=== PATIENT | male | born 1975 | race Caucasian/White ===

== ENCOUNTER 2018-09-16 11:53 | Emergency (ER) | payer BC ==
[2018-09-16] MEDS ORDERED: Sodium Chloride 0.9% 10 ML Syringe FLUSH PRN (12:07)
--- NOTE | 2018-09-16 12:33 | EDM.PDOC ---
ED HPI GENERAL MEDICAL PROBLEM - General Chief Complaint: General Stated Complaint: Syncope Time Seen by Provider: 09/16/18 12:18 Source of Information: Reports: Patient History Limitations: Reports: No Limitations - History of Present Illness INITIAL COMMENTS - FREE TEXT/NARRATIVE: 43 YO WM with PMH of HTN who presents to ER by private vehicle after syncopal episode earlier today. Pt was in a seated position and began to feel lightheaded and lost consciousness. Episode was witnessed by (RN) who states pt was unresponsive for approximately 1 minute. Pt reports no recollection of event and states after he came to he felt "normal". Pt denies any chest pain, diaphoresis, no nausea/vomiting. Pt reports associated shortness of breath and lightheadedness. Pt states in the last 4 months he's had approximately 10 episodes but today's was more severe due to length of episode. Pt states this has been going on for approximately 3 years but also remembers an episode in high school when he was running track and passed out and feels like he was never the same after then. Pt denies any PE risk factors- no long car trips or stasis, no trauma, no known history of clotting disorders. Pt denies any recent illnesses. Pt reports he hasn't been sleeping well. Onset: Today Location: Reports: Generalized Severity: Mild Improves with: Reports: None Worsens with: Reports: None Associated Symptoms: Reports: Shortness of Breath, Syncope. Denies: Confusion, Chest Pain, Cough, Diaphoresis, Fever/Chills, Headaches, Nausea/Vomiting, Seizure - Related Data Allergies Allergy/AdvReac Type Severity Reaction Status Date / Time No Known Drug Allergies Allergy Cannot Verified 09/16/18 12:04 Remember Home Meds: Home Meds amLODIPine [Norvasc] 10 mg PO DAILY 09/16/18 [History] ED ROS GENERAL - Review of Systems Review Of Systems: See Below Constitutional: Reports: No Symptoms HEENT: Reports: No Symptoms Respiratory: Reports: No Symptoms Cardiovascular: Reports: Blood Pressure Problem, Lightheadedness, Syncope Endocrine: Reports: No Symptoms GI/Abdominal: Reports: No Symptoms : Reports: No Symptoms Musculoskeletal: Reports: No Symptoms Skin: Reports: No Symptoms Neurological: Reports: No Symptoms Psychiatric: Reports: No Symptoms Hematologic/Lymphatic: Reports: No Symptoms Immunologic: Reports: No Symptoms ED EXAM, GENERAL - Physical Exam Exam: See Below Exam Limited By: No Limitations General Appearance: Alert, WD/WN, No Apparent Distress Eye Exam: Bilateral Eye: EOMI, PERRL Throat/Mouth: Normal Inspection, Normal Lips, Normal Teeth, Normal Gums, Normal Oropharynx, Normal Voice, No Airway Compromise Head: Atraumatic, Normocephalic Neck: Normal Inspection, Supple, Non-Tender, Full Range of Motion Respiratory/Chest: No Respiratory Distress, Lungs Clear, Normal Breath Sounds, No Accessory Muscle Use, Chest Non-Tender Cardiovascular: Normal Peripheral Pulses, Regular Rate, Rhythm, No Edema, No Gallop, No JVD, No Murmur, No Rub GI/Abdominal: Normal Bowel Sounds, Soft, Non-Tender, No Organomegaly, No Distention, No Abnormal Bruit, No Mass Back Exam: Normal Inspection, Full Range of Motion, NT Extremities: Normal Inspection, Normal Range of Motion, Non-Tender, Normal Capillary Refill, No Pedal Edema Neurological: Alert, Oriented, CN II-XII Intact, Normal Cognition, Normal Gait, Normal Reflexes, No Motor/Sensory Deficits Psychiatric: Normal Affect, Normal Mood Skin Exam: Warm, Dry, Intact, Normal Color, No Rash Lymphatic: No Adenopathy EKG INTERPRETATION EKG Date: 09/16/18 Time: 12:05 Rhythm: NSR Rate (Beats/Min): 78 [place]: Normal P-Wave: Present QRS: Normal ST-T: Normal QT: Normal Comparison: NA - No Prior EKG Course - Vital Signs Last Recorded V/S: Last Vital Signs Temp 36.8 C 09/16/18 11:56 Pulse 82 09/16/18 11:56 Resp 16 09/16/18 11:56 BP 188/82 H 09/16/18 11:56 Pulse Ox 98 09/16/18 11:56 Orthostatic Blood Pressure [ 195/96 Standing] Orthostatic Blood Pressure [ 186/100 Sitting] Orthostatic Blood Pressure [ 165/82 Supine] - Orders/Labs/Meds Orders: Active Orders 24 hr Category Date Time Status Cardiac Monitoring [RC] . DIRECTED Care 09/16/18 12:17 Active EKG Documentation Completion [RC] ASDIRECTED Care 09/16/18 12:07 Active Orthostatic Vital Signs [RC] ASDIRECTED Care 09/16/18 12:17 Active Peripheral IV Care [RC] . DIRECTED Care 09/16/18 12:07 Active Sodium Chloride 0.9% [Saline Flush] Med 09/16/18 12:07 Active 10 ml FLUSH Q8HR PRN Peripheral IV Insertion Adult [OM.PC] Routine Oth 09/16/18 12:07 Ordered Medication Orders Sodium Chloride (Saline Flush) 10 ml FLUSH Q8HR PRN PRN Reason: keep vein open Labs: Laboratory Tests 09/16/18 09/16/18 09/16/18 Range/Units 12:15 12:15 12:15 WBC 7.28 (5.00-10.00) 10^3/uL RBC 5.30 (4.50-6.00) 10^6/uL Hgb 16.0 (13.0-17.0) g/dL Hct 46.7 (40.0-52.0) % MCV 88.1 (82.0-92.0) fL MCH 30.2 (27.0-31.0) pg MCHC 34.3 (32.0-36.0) g/dL RDW 12.2 (11.5-14.5) % Plt Count 224 (150-400) 10^3/uL MPV 10.7 H (7.4-10.4) fL Immature Gran % (Auto) 0.1 (0.0-5.0) % Neut % (Auto) 58.0 (50.0-70.0) % Lymph % (Auto) 28.8 (20.0-40.0) % [place] % (Auto) 9.2 H (2.0-8.0) % Eos % (Auto) 3.6 H (1.0-3.0) % Baso % (Auto) 0.3 (0.0-1.0) % Immature Gran # (Auto) 0.01 (0.00-0.50) 10^3/uL Neut # (Auto) 4.22 (2.50-7.00) 10^3/uL Lymph # (Auto) 2.10 (1.00-4.00) 10^3/uL [place] # (Auto) 0.67 (0.10-0.80) 10^3/uL Eos # (Auto) 0.26 (0.10-0.30) 10^3/uL Baso # (Auto) 0.02 (0.00-0.10) 10^3/uL D-Dimer, Quantitative < 100 (<400) ng/mL Sodium 140 (136-145) mmol/L Potassium 3.8 (3.3-5.3) mmol/L Chloride 101 (98-115) mmol/L Carbon Dioxide 26.7 (21.0-32.0) mmol/L Anion Gap 16.1 H (5-15) mmol/L BUN 12 (6-25) mg/dL Creatinine 0.74 (0.51-1.17) mg/dL Est Cr Clr Drug Dosing 117.35 mL/min Estimated GFR (MDRD) > 60 mL/min Glucose 104 H (75 - 99) mg/dL Calcium 9.1 (8.7-10.3) mg/dL Total Bilirubin 0.3 (0.2-1.0) mg/dL AST 25 (15-37) U/L ALT 50 (12-78) U/L Alkaline Phosphatase 88 (46-116) IU/L Creatine Kinase 83 (26-276) U/L CK-MB (CK-2) 0.90 (0.00-4.30) ng/mL Troponin I 0.05 (0.00-0.070) ng/mL Total Protein 7.8 (6.4-8.2) g/dL Albumin 4.10 (3.00-4.80) g/dL Meds: Medications Generic Name Dose Route Start Last Admin Trade Name Freq PRN Reason Stop Dose Admin Sodium Chloride 10 ml 09/16/18 12:07 Saline Flush FLUSH Q8HR PRN keep vein open - Radiology Interpretation Free Text/Narrative:: CT Head- 2.5cm partially calcified posterior fossa mass abutting and displacing the lower brain stem is likely a meningioma. CXR- NAD - Re-Assessments/Exams Free Text/Narrative Re-Assessment/Exam: 09/16/18 12:41 orthostatics- WNL Departure - Departure Time of Disposition: 13:39 Disposition: DC/Tfer to Acute Hospital 02 Condition: Fair Clinical Impression: Syncope Qualifiers: Encounter type: initial encounter - Discharge Information Forms: ED Department Discharge, Interfacility Transfer EMTALA - My Orders Last 24 Hours: My Active Orders 09/16/18 12:07 EKG Documentation Completion [RC] ASDIRECTED Peripheral IV Care [RC] . DIRECTED Sodium Chloride 0.9% [Saline Flush] 10 ml FLUSH Q8HR PRN Peripheral IV Insertion Adult [OM.PC] Routine 09/16/18 12:17 Cardiac Monitoring [RC] . DIRECTED Orthostatic Vital Signs [RC] ASDIRECTED - Assessment/Plan Last 24 Hours: My Active Orders 09/16/18 12:07 EKG Documentation Completion [RC] ASDIRECTED Peripheral IV Care [RC] . DIRECTED Sodium Chloride 0.9% [Saline Flush] 10 ml FLUSH Q8HR PRN Peripheral IV Insertion Adult [OM.PC] Routine 09/16/18 12:17 Cardiac Monitoring [RC] . DIRECTED Orthostatic Vital Signs [RC] ASDIRECTED Assessment:: 1. Syncope- recurrent 2. 2.5cm calcification posterior fossa abutting and displacing brainstem Plan: 1. Transfer to [facility]- Dr Sanderson 2. supportive care 3. rehabilitation services director
--- NOTE | 2018-09-16 13:08 | CT ---
[id number] CT/CT Head WO IV EXAM: NONCONTRAST HEAD CT INDICATION: SYNCOPE. COMPARISON: None. DISCUSSION: In the posterior fossa there is a partially calcified 2.5 x 1.7 x 2.1 cm mass abutting the right anterior aspect of the medulla which is displaced and at least mildly compressed. The inferior extent of the mass ends at the foramen magnum. This is most consistent with a meningioma, but brain MRI with and without contrast is suggested for further characterization. The supratentorial brain is normal in appearance without midline shift, abnormal density, hemorrhage or acute infarct identified. No extra-axial fluid collection. The orbits and paranasal sinuses are unremarkable. IMPRESSION: 1. A 2.5 cm partially calcified posterior fossa mass abutting and displacing the lower brainstem is likely a meningioma. Brain MRI with and without contrast is suggested for further characterization. Demetrius Olivo MD 09/16/18 [id number] Thank you for allowing us to participate in the care of your patient.
--- NOTE | 2018-09-16 13:09 | CR ---
[id number] RAD/RAD Chest PA or AP 1V EXAM: FRONTAL CHEST INDICATION: SYNCOPE. COMPARISON: January 24, 2018. DISCUSSION: The heart is mildly enlarged without evidence of congestive heart failure. There is mild scarring or subsegmental atelectasis in the left lung base. No acute infiltrates are identified. IMPRESSION: 1. No acute findings. Demetrius Olivo MD 09/16/18 2025 Thank you for allowing us to participate in the care of your patient.
[2018-09-16 13:18] LABS: ANION GAP 16.1 mmol/L (5-15); CHLORIDE,CL 101 mmol/L (98-115); SODIUM,NA 140 mmol/L (136-145)
== END 2018-09-16 14:23 ==
LOC: MERGE 11:53 → UNMERGE 11:53 → KA.ED 11:53
DX: R55 Syncope and collapse (principal); G93.89 Other specified disorders of brain
CPT/HCPCS: 70450; 71045; 80053; 82550; 82553; 84484; 85025; 85379; 93005; 99285-25

== ENCOUNTER 2018-09-24 15:20 | Emergency (ER) | payer BC ==
--- NOTE | 2018-09-24 16:09 | EDM.PDOC ---
ED HPI GENERAL MEDICAL PROBLEM - General Chief Complaint: Fever Stated Complaint: fever Time Seen by Provider: 09/24/18 15:52 Source of Information: Reports: Patient, Family () History Limitations: Reports: No Limitations - History of Present Illness INITIAL COMMENTS - FREE TEXT/NARRATIVE: Patient is a 43-year-old gentleman who presents to the emergency department this afternoon with a complaint of fever. Fever began earlier today. 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 On 09/16/18 , patient presented to this emergency department for syncopal episode, and was ultimately diagnosed with lower brainstem mass, meningioma. Patient was transferred to [facility] where he underwent brain surgery. During hospital course patient developed LLL pneumonia on , and was given 1 g Rocephin IV for 3 days. Patient was discharged from [facility] yesterday. states that during the evening patient felt warm, and when temperature was taken patient was 102. discussed situation with neurology at [facility] , and the recommendation was to present to the ER for a CT brain to rule out any abscess. Patient also be evaluated for worsening of pneumonia. Patient states that he does have a headache and mildly stiff neck, but this has slowly improved in this past week. At this time patient denies any syncopal episodes, dizziness, seizure activity, blurry vision, light sensitivity, facial swelling, numbness or tingling, nausea, vomiting, diarrhea, or recent trauma. Onset: Gradual Duration: Day(s): Severity: Mild Improves with: Reports: None Worsens with: Reports: None Associated Symptoms: Reports: Fever/Chills Treatments REGIONAL CLINICAL DIRECTOR: Reports: Acetaminophen Headache Pain Score (Numeric/FACES): 3 - Related Data Allergies Allergy/AdvReac Type Severity Reaction Status Date / Time No Known Drug Allergies Allergy Cannot Unverified 09/24/18 17:21 Remember Home Meds: Home Meds amLODIPine [Norvasc] 10 mg PO DAILY 09/16/18 [History] Acetaminophen [Tylenol Extra Strength] 1,000 mg PO Q6H PRN 09/24/18 [History] Cefuroxime Axetil [Ceftin] 500 mg PO BID 09/24/18 [History] Cyclobenzaprine [Flexeril] 5 mg PO TID PRN 09/24/18 [History] Hydrocodone/Acetaminophen [Hydrocodon-Acetaminophen 5-325] 1 each PO Q4H PRN [History] Levofloxacin [Levaquin] 750 mg PO DAILY #5 tablet 09/24/18 [Rx] Lisinopril 20 mg PO DAILY 09/24/18 [History] Past Medical History HEENT History: Reports: Impaired Vision Cardiovascular History: Reports: Hypertension Respiratory History: Reports: Pneumonia, Recurrent Gastrointestinal History: Reports: Chronic Diarrhea Musculoskeletal History: Reports: Fracture Other Musculoskeletal History: Finger, compression fracture to thoracic spine Neurological History: Reports: Concussion, Head Trauma Psychiatric History: Reports: Other (See Below) Other Psychiatric History: Claustriphobic - Infectious Disease History Infectious Disease History: Reports: Chicken Pox, Shingles - Past Surgical History Head Surgeries/Procedures: Reports: None HEENT Surgical History: Reports: Oral Surgery Cardiovascular Surgical History: Reports: None Respiratory Surgical History: Reports: None GI Surgical History: Reports: None Neurological Surgical History: Reports: None Musculoskeletal Surgical History: Reports: None Dermatological Surgical History: Reports: None Social & Family History - Family History Family Medical History: Noncontributory - Tobacco Use Smoking Status *Q: Never Smoker - Caffeine Use Caffeine Use: Reports: None ED ROS GENERAL - Review of Systems Review Of Systems: ROS reveals no pertinent complaints other than HPI. Constitutional: Reports: Fever HEENT: Reports: No Symptoms Respiratory: Reports: Shortness of Breath Cardiovascular: Reports: No Symptoms Endocrine: Reports: No Symptoms GI/Abdominal: Reports: No Symptoms : Reports: No Symptoms Musculoskeletal: Reports: No Symptoms Skin: Reports: No Symptoms Neurological: Reports: Headache Psychiatric: Reports: No Symptoms Hematologic/Lymphatic: Reports: No Symptoms Immunologic: Reports: No Symptoms ED EXAM, GENERAL - Physical Exam Exam: See Below Exam Limited By: No Limitations General Appearance: Alert, WD/WN, No Apparent Distress Eye Exam: Bilateral Eye: Normal Inspection Ears: Normal External Exam, Normal Canal, Normal TMs Nose: Normal Inspection, Normal Mucosa, No Blood Throat/Mouth: Normal Inspection, Normal Oropharynx, No Airway Compromise Head: Other (Right inferior lateral surgical scar with sutures in place. No erythema, bogginess, or dehiscence noticed) Respiratory/Chest: No Respiratory Distress, No Accessory Muscle Use, Chest Non- Tender, Rales (Bibasilar) Cardiovascular: Normal Peripheral Pulses, Regular Rate, Rhythm, No Murmur GI/Abdominal: Normal Bowel Sounds, Soft, Non-Tender Back Exam: Normal Inspection. No: CVA Tenderness (L), CVA Tenderness (R) Extremities: Normal Inspection, No Pedal Edema Neurological: Alert, Oriented, CN II-XII Intact, Normal Cognition, No Motor/ Sensory Deficits Psychiatric: Normal Affect, Normal Mood Skin Exam: Warm, Dry, Intact, Normal Color, No Rash Lymphatic: No Adenopathy Course - Vital Signs Last Recorded V/S: Last Vital Signs Temp 100 F 09/24/18 15:21 Pulse 71 09/24/18 15:21 Resp 16 09/24/18 15:21 BP 144/49 H 09/24/18 15:21 Pulse Ox 94 L 09/24/18 15:21 - Orders/Labs/Meds Orders: Active Orders 24 hr Category Date Time Status Head wo Cont [CT] Stat Exams 09/24/18 15:32 Ordered CULTURE BLOOD [BC] Stat Lab 09/24/18 15:33 Ordered CULTURE BLOOD [BC] Stat Lab 09/24/18 15:33 Ordered Blood Culture x2 Reflex Set [OM.PC] Stat Oth 09/24/18 15:32 Ordered Labs: Laboratory Tests 09/24/18 09/24/18 09/24/18 Range/Units 15:45 15:45 15:45 WBC 13.35 H (5.00-10.00) 10^3/uL RBC 4.27 L (4.50-6.00) 10^6/uL Hgb 12.9 L D (13.0-17.0) g/dL Hct 37.1 L (40.0-52.0) % MCV 86.9 (82.0-92.0) fL MCH 30.2 (27.0-31.0) pg MCHC 34.8 (32.0-36.0) g/dL RDW 11.8 (11.5-14.5) % Plt Count 252 (150-400) 10^3/uL MPV 11.0 H (7.4-10.4) fL Immature Gran % (Auto) 0.7 (0.0-5.0) % Neut % (Auto) 75.4 H (50.0-70.0) % Lymph % (Auto) 12.9 L (20.0-40.0) % [place] % (Auto) 10.4 H (2.0-8.0) % Eos % (Auto) 0.5 L (1.0-3.0) % Baso % (Auto) 0.1 (0.0-1.0) % Immature Gran # (Auto) 0.10 (0.00-0.50) 10^3/uL Neut # (Auto) 10.06 H (2.50-7.00) 10^3/uL Lymph # (Auto) 1.72 (1.00-4.00) 10^3/uL [place] # (Auto) 1.39 H (0.10-0.80) 10^3/uL Eos # (Auto) 0.07 L (0.10-0.30) 10^3/uL Baso # (Auto) 0.01 (0.00-0.10) 10^3/uL Sodium 135 L (136-145) mmol/L Potassium 3.2 L (3.3-5.3) mmol/L Chloride 96 L (98-115) mmol/L Carbon Dioxide 30.6 (21.0-32.0) mmol/L Anion Gap 11.6 (5-15) mmol/L BUN 15 (6-25) mg/dL Creatinine 0.62 (0.51-1.17) mg/dL Est Cr Clr Drug Dosing 135.01 mL/min Estimated GFR (MDRD) > 60 mL/min Glucose 117 H (75 - 99) mg/dL Lactic Acid 1.0 (0.4-2.0) mmol/L Calcium 8.4 L (8.7-10.3) mg/dL Total Bilirubin 0.5 (0.2-1.0) mg/dL AST 39 H (15-37) U/L ALT 72 (12-78) U/L Alkaline Phosphatase 84 (46-116) IU/L Total Protein 6.6 (6.4-8.2) g/dL Albumin 2.74 L (3.00-4.80) g/dL Specimen Type Urine Color (YELLOW) Urine Appearance (CLEAR) Urine pH (5.0-9.0) Ur Specific [place] (1.005-1.030) Urine Protein (NEGATIVE) mg/dL Urine Glucose (UA) (NEGATIVE) mg/dL Urine Ketones (NEGATIVE) mg/dL Urine Occult Blood (NEGATIVE) Urine Nitrite (NEGATIVE) Urine Bilirubin (NEGATIVE) Urine Urobilinogen (0.2-1.0) E.U./dL Ur Leukocyte Esterase (NEGATIVE) Urine RBC (0-5) /HPF Urine WBC (0-5) /HPF Ur Epithelial Cells /LPF Urine Bacteria (NONE TO FEW) /HPF 09/24/18 Range/Units 16:23 WBC (5.00-10.00) 10^3/uL RBC (4.50-6.00) 10^6/uL Hgb (13.0-17.0) g/dL Hct (40.0-52.0) % MCV (82.0-92.0) fL MCH (27.0-31.0) pg MCHC (32.0-36.0) g/dL RDW (11.5-14.5) % Plt Count (150-400) 10^3/uL MPV (7.4-10.4) fL Immature Gran % (Auto) (0.0-5.0) % Neut % (Auto) (50.0-70.0) % Lymph % (Auto) (20.0-40.0) % [place] % (Auto) (2.0-8.0) % Eos % (Auto) (1.0-3.0) % Baso % (Auto) (0.0-1.0) % Immature Gran # (Auto) (0.00-0.50) 10^3/uL Neut # (Auto) (2.50-7.00) 10^3/uL Lymph # (Auto) (1.00-4.00) 10^3/uL [place] # (Auto) (0.10-0.80) 10^3/uL Eos # (Auto) (0.10-0.30) 10^3/uL Baso # (Auto) (0.00-0.10) 10^3/uL Sodium (136-145) mmol/L Potassium (3.3-5.3) mmol/L Chloride (98-115) mmol/L Carbon Dioxide (21.0-32.0) mmol/L Anion Gap (5-15) mmol/L BUN (6-25) mg/dL Creatinine (0.51-1.17) mg/dL Est Cr Clr Drug Dosing mL/min Estimated GFR (MDRD) mL/min Glucose (75 - 99) mg/dL Lactic Acid (0.4-2.0) mmol/L Calcium (8.7-10.3) mg/dL Total Bilirubin (0.2-1.0) mg/dL AST (15-37) U/L ALT (12-78) U/L Alkaline Phosphatase (46-116) IU/L Total Protein (6.4-8.2) g/dL Albumin (3.00-4.80) g/dL Specimen Type Urincc Urine Color Yellow (YELLOW) Urine Appearance Clear (CLEAR) Urine pH 6.5 (5.0-9.0) Ur Specific [place] 1.010 (1.005-1.030) Urine Protein Negative (NEGATIVE) mg/dL Urine Glucose (UA) Negative (NEGATIVE) mg/dL Urine Ketones Negative (NEGATIVE) mg/dL Urine Occult Blood Negative (NEGATIVE) Urine Nitrite Negative (NEGATIVE) Urine Bilirubin Negative (NEGATIVE) Urine Urobilinogen 0.2 (0.2-1.0) E.U./dL Ur Leukocyte Esterase Negative (NEGATIVE) Urine RBC 0-5 (0-5) /HPF Urine WBC 0-5 (0-5) /HPF Ur Epithelial Cells Rare /LPF Urine Bacteria Rare (NONE TO FEW) /HPF Meds: Medications Discontinued Medications Generic Name Dose Route Start Last Admin Trade Name Freq PRN Reason Stop Dose Admin Ceftriaxone Sodium 1 gm 09/24/18 17:17 09/24/18 17:22 Rocephin IVPUSH 09/24/18 17:18 1 gm ONETIME ONE Administration Levofloxacin 500 mg 09/24/18 17:17 09/24/18 17:22 Levaquin PO 09/24/18 17:18 500 mg ONETIME ONE Administration - Radiology Interpretation Free Text/Narrative:: Chest x-ray shows left lower lobe pneumonia/unable to review previous chest x- ray from [facility] to compare CT head without contrast shows gas and fluid collection seen in the soft tissue adjacent to the craniotomy site. Per radiology, there was a clinical concern for abscess. - Re-Assessments/Exams Free Text/Narrative Re-Assessment/Exam: 09/24/18 17:22 Patient now afebrile, appears nontoxic, feels better, at bedside. Discussed case with , neurosurgeon at [facility]. He felt that the fever and infection is still attributed to the pneumonia. Recommended that if symptoms continue to present to his office [facility]. Patient given 1 g IV Rocephin, and 500 mg Levaquin in the ER. Patient given prescription for 750 mg Levaquin daily for 5 days. Patient will follow-up with Dr. Nicolas, or return to emergency department symptoms continue or worsen 09/24/18 17:23 09/24/18 17:24 Departure - Departure Time of Disposition: 17:26 Disposition: Home, Self-Care 01 Condition: Good Clinical Impression: Status post craniotomy Pneumonia Qualifiers: Pneumonia type: due to unspecified organism Laterality: left Lung location: lower lobe of lung Qualified Code(s): J18.1 - Lobar pneumonia, unspecified organism Fever Qualifiers: Fever type: due to other condition Qualified Code(s): R50.81 - Fever presenting with conditions classified elsewhere - Discharge Information Prescriptions: Levofloxacin [Levaquin] 750 mg PO DAILY #5 tablet Instructions: Fever, Adult, [id number], Community-Acquired Pneumonia, Adult, [id number] Referrals: Maricarmen Nugent MD [Primary Care Provider] - Forms: ED Department Discharge Additional Instructions: Contact Dr. Michelle's office tomorrow. Follow-up with Dr. Nicolas in one to 2 days. Return to emergency department sooner if symptoms continue or worsen. Take medication as directed. - My Orders Last 24 Hours: My Active Orders 09/24/18 15:32 Head wo Cont [CT] Stat Blood Culture x2 Reflex Set [OM.PC] Stat 09/24/18 15:33 CULTURE BLOOD [BC] Stat CULTURE BLOOD [BC] Stat - Assessment/Plan Last 24 Hours: My Active Orders 09/24/18 15:32 Head wo Cont [CT] Stat Blood Culture x2 Reflex Set [OM.PC] Stat 09/24/18 15:33 CULTURE BLOOD [BC] Stat CULTURE BLOOD [BC] Stat Assessment:: Pneumonia Plan: Follow-up with Dr. Nicolas
[2018-09-24 16:14] LABS: ANION GAP 11.6 mmol/L (5-15); CHLORIDE,CL 96 mmol/L (98-115); SODIUM,NA 135 mmol/L (136-145)
--- NOTE | 2018-09-24 16:28 | CR ---
[id number] RAD/RAD Chest PA And Lateral EXAM: RAD Chest PA And Lateral INDICATION: FEVER. COMPARISON: September 16, 2018. DISCUSSION: Abnormal appearance of the right hilar and infrahilar regions compared to the prior examination. Underlying pneumonia is possible in the clinical setting of infection. Additionally, there are streaky parenchymal opacity in the left lung base not seen previously. This could also represent underlying pneumonia. Differential diagnosis includes subsegmental atelectasis. If findings are clinically equivocal, chest CT without contrast recommended for further evaluation. IMPRESSION: Abnormal appearance of the lung bases, described above. Foreign Raphael MD 09/24/18 [id number] Thank you for allowing us to participate in the care of your patient.
[2018-09-24] MEDS ORDERED: Levofloxacin 500 MG Tab PO ONE (17:17)
[2018-09-24] MEDS ORDERED: cefTRIAXone 1 GM Vial IVPUSH ONE (17:17)
== END 2018-09-24 17:40 | disposition home or self-care (01) ==
LOC: KA.ED 15:20
DX: J18.1 Lobar pneumonia, unspecified organism (principal); I10 Essential (primary) hypertension; Z98.890 Other specified postprocedural states; Z79.899 Other long term (current) drug therapy
CPT/HCPCS: 36415; 70450; 71046; 80053; 81001; 83605; 85025; 87040; 96374; 99284-25; A9270-GY; J0696

== ENCOUNTER 2024-11-12 12:28 | Day surgery (SDC) | payer OTHER ==
[2024-11-12] MEDS: Lactated Ringers 1,000 ML IV SCH (13:04)
[2024-11-12] MEDS: Sodium Chloride 0.9% 10 ML Syringe FLUSH PRN (13:05)
[2024-11-12] MEDS ORDERED: Midazolam 1 MG/ML 2 ML SDV ONE (13:17)
[2024-11-12] MEDS ORDERED: Propofol 200 MG/20 ML SDV ONE (13:17)
== END 2024-11-12 15:00 | disposition home or self-care (01) ==
LOC: KA.SDS 12:28
PROVIDERS: ATTEND Surgery
DX: Z12.11 Encounter for screening for malignant neoplasm of colon (principal); R19.5 Other fecal abnormalities; I10 Essential (primary) hypertension; F32.A Depression, unspecified; N40.0 Benign prostatic hyperplasia without lower urinary tract symptoms; E66.01 Morbid (severe) obesity due to excess calories; Z68.41 Body mass index [BMI] 40.0-44.9, adult; Z79.899 Other long term (current) drug therapy
CPT/HCPCS: 00811; J2250; J2704; J7120